=== PATIENT | female | born 1975 | race Caucasian/White ===

== ENCOUNTER 2024-04-04 10:22 | Emergency (ER) | payer OTHER ==
[2024-04-04] MEDS ORDERED: ONDANSETRON 4 MG/2 ML VIAL ONE (11:03)
[2024-04-04] MEDS ORDERED: KETOROLAC 30 MG/ML INJ ONE (11:04)
[2024-04-04] MEDS ORDERED: NA CHLORIDE 0.9% 1,000 ML ONE ×2 (11:04→12:28)
[2024-04-04] MEDS ORDERED: FAMOTIDINE 20 MG/2 ML VIAL IV ONE (11:04)
[2024-04-04] MEDS ORDERED: droPERidol 5 MG/2 ML VIAL ONE (11:13)
[2024-04-04] MEDS ORDERED: DIPHENHYDRAMINE 50 MG/ML VIAL ONE (11:14)
[2024-04-04 11:19] LABS: Absolute Lymphocytes (CBC) 0.7 K/uL (0.7-4.9); Absolute Monocytes 0.2 K/uL (0.1-1.3); Absolute Neutrophil 10.3 K/uL (1.8-8.0); Basophils % 0.2 % (0-1.3); Hematocrit 36.3 % (36.0-45.0); Hemoglobin 11.8 g/dL (12.0-15.0); Lymphocytes % 6.1 % (15.3-44.8); MCH 27.6 pg (27.0-35.0); MCHC 32.5 g/dL (32.0-36.0); MCV 84.8 fL (80-100); MPV 9.5 fL (7.6-11.3); Monocytes % 1.7 % (3.3-12.3); Platelets 364 thou/uL (152-406); RBC Red Blood Cell Count 4.29 M/uL (3.86-4.86); Red Cell Distribution Width 15.6 % (12.1-15.2)
[2024-04-04 11:34] LABS: Albumin 3.8 g/dL (3.4-5.0); Anion Gap 15.4 mEq/L (5.0-15.0); Bilirubin Total 0.7 mg/dL (0.2-1.0); Potassium 3.4 mEq/L (3.5-5.1); Protein, Total 7.8 g/dL (6.4-8.2)
[2024-04-04 12:18] LABS: Specific Gravity 1.016 (1.005-1.030)
[2024-04-04 12:19] LABS: Specific Gravity 1.016 (1.005-1.030); Sqamous Epithelial None Seen /HPF (None Seen); Urine Bacteria <20 /HPF (<20); Urine Bilirubin NEGATIVE (Negative); Urine Blood Negative (Negative); Urine Clarity Clear (Clear); Urine Color Colorless (Yellow); Urine Crystals Unidentified Few /HPF (None Seen); Urine Culture Reflex Order NOT NEEDED; Urine Glucose 3+ (Negative); Urine Ketones 4+ (Over) (Negative); Urine Microscopic Reflex YN ORDER UMIC; Urine Mucus Slight /HPF (None Seen); Urine Nitrite NEGATIVE (Negative); Urine Protein 1+ (Negative); Urine Urobilinogen Normal (Normal); Urine pH 6.5 (5.0-7.0)
--- NOTE | 2024-04-04 13:08 | RAD REPORT ---
EXAMINATION: CT ABDOMEN AND PELVIS WITH CONTRAST CLINICAL INDICATION: Abdominal pain TECHNIQUE: CT abdomen and pelvis was performed, after the administration of 100 cc Isovue-300.. Sagit malia and coronal reconstructions were obtained. One or more of the following dose reduction techniques were used: Automated exposure control, adjustment of the mA and kV according to patient si ze, and iterative reconstruction. Unless otherwise specified, incidental findings do not require dedicated imaging follow-up. [id number]. Oral contrast was not given which limits evaluation of bowel and appendix. COMPARISON: .None FINDINGS: The liver, spleen, pancreas and adrenals unremarkable. Bilateral renal medullary calcifications. 2 calculi within the left renal. The largest centimeters. M inimal hydronephrosis. 5 mm calcification distal left ureter. Small renal cysts Normal appendix. No adnexal mass. No evidence of diverticulitis. Disc space narrowing L5-S1 with osteophytes. Mild posterior subluxation L5 on S1. Postsurgical change s stomach : IMPRESSION: Medullary sponge kidney 2 calculi within the left renal pelvis 5 mm calculus distal left ureter. Minimal left hydronephrosis
[2024-04-04 13:14] LABS: Blood Morphology Comment NOTED (NOT SEEN); Platelet Estimate ADEQ; White Blood Cell Scan OK (OK)
[2024-04-04 13:15] LABS: Ovalocytes 1+
[2024-04-04] MEDS ORDERED: TAMSULOSIN 0.4 MG SR CAP ONE (13:37)
--- NOTE | 2024-04-04 13:37 | EDPHYS ---
Physician Documentation [facility] Name: Leena George Age: 48 yrs Sex: Female : 1975 Arrival Date: 04/04/2024 Time: 10:22 Bed 20 Private MD: ED Physician Pedro Leyva HPI: 04/04 10:32 This 48 yrs old Female presents to ER via Unassigned with complaints of Abdominal Pain, kb Vomiting. 10:32 Pt is a 48 year old female who presents for LUQ pain, nausea and vomiting that started kb at 0300 today. Denies diarrhea, fever. Has not had similar symptoms in the past. Historical: - Allergies: 11:01 No Known Allergies; hb - Immunization history:: Adult Immunizations up to date. - Infectious Disease History:: Denies. - Social history:: Smoking status: Patient denies any tobacco usage or history of. ROS: 10:33 Constitutional: As per HPI kb Exam: 10:33 Head/Face: Normocephalic, atraumatic. ENT: Moist Mucous membranes Cardiovascular: kb Regular rate Respiratory: Respirations even and unlabored. No increased work of breathing. Talking in full sentences Skin: Warm, dry with normal turgor. Normal color. MS/ Extremity: Pulses equal, no cyanosis. Neurovascular intact. Full, normal range of motion. Neuro: Awake and alert, GCS 15, oriented to person, place, time, and situation. 10:33 Constitutional: The patient appears alert, awake, uncomfortable, 10:33 Abdomen/GI: Inspection: abdomen appears normal, Bowel sounds: normal, Palpation: soft, in all quadrants, mild abdominal tenderness, in the left upper quadrant, Vital Signs: 10:59 BP 189 / 83; Pulse 60; Resp 16; Temp 98.2(O); Pulse Ox 100% on R/A; Weight 81.65 kg; hb Height 5 ft. 9 in. ; Pain 8/10; 13:19 BP 154 / 72; Pulse 71; Resp 18; Pulse Ox 100% on R/A; mb9 10:59 Body Mass Index 26.58 (81.65 kg, 175.26 cm) hb 10:59 Pain Scale: Adult hb MDM: 10:26 Medical Screening Exam initiated kb 13:36 Data reviewed: vital signs, nurses notes. kb 13:38 Differential diagnosis: non-specific abd pain, pancreatitis, Peptic Ulcer Disease, kb Ureterolithiasis, urinary tract infection. Historians other than the Patient: Spouse/Significant Other: spouse. Counseling: I had a detailed discussion with the patient and/or guardian regarding the historical points, exam findings, and any diagnostic results supporting the discharge/admit diagnosis, lab results, radiology results, the need for outpatient follow up, a urologist, to return to the emergency department if symptoms worsen or persist or if there are any questions or concerns that arise at home. Response to treatment: the patient's symptoms have markedly improved after treatment. 04/04 10:32 Order name: CBC with Diff; Complete Time: 13:25 kb 04/04 10:32 Order name: CMP; Complete Time: 11:35 kb 04/04 10:32 Order name: Lipase; Complete Time: 11:35 kb 04/04 10:32 Order name: Test, Urine; Complete Time: 12:21 kb 04/04 10:32 Order name: Urinalysis w/ reflexes; Complete Time: 12:21 kb 04/04 13:16 Order name: CBC Smear Scan; Complete Time: 13:25 EDMS 04/04 10:32 Order name: CT Abd/Pelvis - IV Contrast Only; Complete Time: 13:13 kb 04/04 10:32 Order name: IV Saline Lock; Complete Time: 11:12 kb 04/04 10:32 Order name: Labs collected and sent; Complete Time: 11:12 kb Administered Medications: 11:00 Drug: Famotidine IVP 20 mg IVP once; dilute with 10 mL 0.9% NaCl; give over 2 minutes mb9 Route: IVP; Site: left antecubital; 13:18 Follow up: Response: No adverse reaction mb9 11:05 Drug: TORadol - Ketorolac IVP 15 mg IVP once Route: IVP; Site: left antecubital; mb9 11:52 Follow up: Response: No adverse reaction mb9 11:08 Not Given (Duplicate Order): ondansetron 4 mg IVP once; over 2 minutes kb 11:12 Drug: NS 0.9% IV 1000 ml IV at 1 bolus Per protocol; to be given as a bolus over 60 mb9 minutes Route: IV; Rate: 1 bolus; Site: left antecubital; 13:18 Follow up: Response: No adverse reaction; IV Status: Completed infusion mb9 11:18 Drug: diphenhydrAMINE IVP 12.5 mg IVP once Route: IVP; Site: left antecubital; mb9 13:18 Follow up: Response: No adverse reaction mb9 11:20 Drug: Droperidol IVP 1.25 mg IVP once Route: IVP; Site: left antecubital; mb9 13:18 Follow up: Response: No adverse reaction mb9 12:55 Drug: NS 0.9% IV 1000 ml IV at 1000 ml once; to be given as a bolus over 60 minutes mb9 Route: IV; Rate: 1000 ml; Site: left antecubital; 13:46 Follow up: Response: No adverse reaction; IV Status: Completed infusion mb9 13:38 Drug: Hydrocodone-Acetaminophen PO (7.5 mg-325 mg) 1 tabs PO once Route: PO; mb9 13:47 Follow up: Response: No adverse reaction mb9 13:38 Drug: Flomax PO 0.4 mg PO once Route: PO; mb9 13:47 Follow up: Response: No adverse reaction mb9 Disposition Summary: 04/04/24 13:36 Discharge Ordered Notes: Location: Home kb Condition: Stable kb Diagnosis - Calculus of ureter kb - Dehydration kb Followup: kb - With: Emergency Department - When: As needed - Reason: Worsening of condition Followup: kb - With: Private Physician - When: 2 - 3 days - Reason: Recheck today's complaints, Continuance of care, Re-evaluation by your physician Discharge Instructions: - Discharge Summary Sheet kb - Dehydration, Adult kb - Kidney Stones, [id number] kb - Dietary Guidelines to Help Prevent Kidney Stones kb Forms: - Medication Reconciliation Form kb - Antibiotic Education kb - Prescription Opioid Use kb - Patient Portal Instructions kb - Leadership Thank You Letter kb Prescriptions: - Flomax 0.4 mg Oral capsule - take 1 capsule ORAL route daily; 10 capsule; Refills: 0, Product Selection kb Permitted - Zofran 4 mg Oral tablet - take 1 tablet ORAL route every 6 hours As needed; 12 tablet; Refills: 0, kb Product Selection Permitted - Cipro 500 mg Oral Tablet - take 1 tablet ORAL route every 12 hours for 7 days; 14 tablet; Refills: 0, kb Product Selection Permitted - Diclofenac Sodium 75 mg Oral tablet, delayed release (enteric coated) - take 1 tablet ORAL route 2 times per day As needed; 30 tablet; Refills: 0, kb Product Selection Permitted Signatures: Dispatcher [employer] Geno Ibanez, Shayna Burden, RN RN Dana Jones RN RN mb9
--- NOTE | 2024-04-04 13:37 | ER ---
Nurse's Notes [facility] Name: Leena George Age: 48 yrs Sex: Female : 1975 Arrival Date: 04/04/2024 Time: 10:22 Bed 20 Private MD: Diagnosis: Calculus of ureter;Dehydration Presentation: 04/04 10:59 Chief complaint: LUQ pain and N/V since 0300 today. Coronavirus screen: At this time, hb the client does not indicate any symptoms associated with coronavirus-19. Ebola Screen: No symptoms or risks identified at this time. Initial Sepsis Screen: Does the patient meet any 2 criteria? No. Patient's initial sepsis screen is negative. Does the patient have a suspected source of infection? No. Patient's initial sepsis screen is negative. Risk Assessment: Do you want to hurt yourself or someone else? Patient reports no desire to harm self or others. Onset of symptoms was April 04, 2024. 10:59 Method Of Arrival: Ambulatory hb 10:59 Acuity: EMILIA 3 hb Historical: - Allergies: 11:01 No Known Allergies; hb - Immunization history:: Adult Immunizations up to date. - Infectious Disease History:: Denies. - Social history:: Smoking status: Patient denies any tobacco usage or history of. Screenin:23 [facility] ED Fall Risk Assessment (Adult) History of falling in the last 3 months, mb9 including since admission No falls in past 3 months (0 pts) Confusion or Disorientation No (0 pts) Intoxicated or Sedated No (0 pts) Impaired Gait No (0 pts) Mobility Assist Device Used No (0 pt) Altered Elimination No (0 pt) Score/Fall Risk Level 0 - 2 = Low Risk Oriented to surroundings, Maintained a safe environment, Educated pt \T\ family on fall prevention, incl call for assistance when getting out of bed, Assessed \T\ reinforced patient's understanding of fall precautions. Abuse screen: Denies threats or abuse. Nutritional screening: No deficits noted. Tuberculosis screening: No symptoms or risk factors identified. Assessment: 11:22 General: Appears uncomfortable, Behavior is anxious. Pain: Complains of pain in abdomen mb9 Pain radiates to left upper quadrant Pain currently is 10 out of 10 on a pain scale. Quality of pain is described as sharp, shooting, Pain began suddenly, Is continuous. Neuro: Smith Agitation-Sedation Scale (RASS): 0 - Alert and Calm Level of Consciousness is awake, alert, obeys commands, Oriented to person, place, time, situation, Appropriate for age. Cardiovascular: Heart tones S1 S2 present Patient's skin is warm and dry. Respiratory: Airway is patent Respiratory effort is even, unlabored, Respiratory pattern is regular, symmetrical, Breath sounds are clear bilaterally. GI: Abdomen is round non-distended, Bowel sounds present X 4 quads. Abd is soft Abdomen is tender to palpation in left upper quadrant Reports nausea, vomiting. : No signs and/or symptoms were reported regarding the genitourinary system. EENT: No signs and/or symptoms were reported regarding the EENT system. Derm: Skin is intact, Skin is clammy, Skin is pale, Skin temperature is cool. Musculoskeletal: Range of motion: intact in all extremities. 13:19 Reassessment: No changes from previously documented assessment. Patient and/or family mb9 updated on plan of care and expected duration. Pain level reassessed. Patient is alert, oriented x 3, equal unlabored respirations, skin warm/dry/pink. Vital Signs: 10:59 BP 189 / 83; Pulse 60; Resp 16; Temp 98.2(O); Pulse Ox 100% on R/A; Weight 81.65 kg; hb Height 5 ft. 9 in. ; Pain 8/10; 13:19 BP 154 / 72; Pulse 71; Resp 18; Pulse Ox 100% on R/A; mb9 10:59 Body Mass Index 26.58 (81.65 kg, 175.26 cm) hb 10:59 Pain Scale: Adult hb ED Course: 10:26 Patient arrived in ED. al6 10:26 Geno Chowdary FNP-C [facility]. kb 10:26 Pedro Leyva MD is Attending Physician. kb 10:59 Dana Tracy RN is Primary Nurse. mb9 11:01 Triage completed. hb 11:01 Arm band placed on. hb 11:12 Initial lab(s) drawn, by me, sent to lab. Inserted saline lock: 20 gauge in left mb9 antecubital area, using aseptic technique. Blood collected. Flushed with 10 mL NS. 11:23 Placed in gown. Bed in low position. Call light in reach. Side rails up X 1. Provided mb9 Education on: press call light if needing anything. Client placed on continuous cardiac and pulse oximetry monitoring. NIBP monitoring applied. Door closed. Noise minimized. Warm blanket given. Pillow given. 11:55 Radiology exam delayed due to test not completed at this time. mw3 12:38 CT Abd/Pelvis - IV Contrast Only In Process Unspecified. EDMS 13:47 No provider procedures requiring assistance completed. IV discontinued, intact, mb9 bleeding controlled, No redness/swelling at site. Pressure dressing applied. Administered Medications: 11:00 Drug: Famotidine IVP 20 mg IVP once; dilute with 10 mL 0.9% NaCl; give over 2 minutes mb9 Route: IVP; Site: left antecubital; 13:18 Follow up: Response: No adverse reaction mb9 11:05 Drug: TORadol - Ketorolac IVP 15 mg IVP once Route: IVP; Site: left antecubital; mb9 11:52 Follow up: Response: No adverse reaction mb9 11:08 Not Given (Duplicate Order): ondansetron 4 mg IVP once; over 2 minutes kb 11:12 Drug: NS 0.9% IV 1000 ml IV at 1 bolus Per protocol; to be given as a bolus over 60 mb9 minutes Route: IV; Rate: 1 bolus; Site: left antecubital; 13:18 Follow up: Response: No adverse reaction; IV Status: Completed infusion mb9 11:18 Drug: diphenhydrAMINE IVP 12.5 mg IVP once Route: IVP; Site: left antecubital; mb9 13:18 Follow up: Response: No adverse reaction mb9 11:20 Drug: Droperidol IVP 1.25 mg IVP once Route: IVP; Site: left antecubital; mb9 13:18 Follow up: Response: No adverse reaction mb9 12:55 Drug: NS 0.9% IV 1000 ml IV at 1000 ml once; to be given as a bolus over 60 minutes mb9 Route: IV; Rate: 1000 ml; Site: left antecubital; 13:46 Follow up: Response: No adverse reaction; IV Status: Completed infusion mb9 13:38 Drug: Hydrocodone-Acetaminophen PO (7.5 mg-325 mg) 1 tabs PO once Route: PO; mb9 13:47 Follow up: Response: No adverse reaction mb9 13:38 Drug: Flomax PO 0.4 mg PO once Route: PO; mb9 13:47 Follow up: Response: No adverse reaction mb9 Medication: 11:24 VIS not applicable for this client. mb9 Outcome: 13:36 Discharge ordered by MD. parks 13:47 Discharged to home ambulatory, with family, mb9 13:47 Condition: stable 13:47 Discharge instructions given to patient, Instructed on discharge instructions, follow up and referral plans. Demonstrated understanding of instructions, follow-up care, medications, Prescriptions given X 4, 13:47 Patient left the ED. mb9 Signatures: Dispatcher [employer] EDMS Geno Chowdary, HUMAN RESOURCES BENEFITS COORDINATOR-C HUMAN RESOURCES BENEFITS COORDINATOR-Shayna Covarrubias RN RN Suly Buckley 3 Dana Tracy RN RN mb9 Sera [place]6 Corrections: (The following items were deleted from the chart) 11:01 10:59 Chief complaint: hb hb
[2024-04-04] MEDS ORDERED: HYDROCODONE/APAP 7.5/325 MG TAB ONE (13:38)
[2024-04-04 13:53] VITALS: BP 154/72; O2SAT 100
[2024-04-04 13:55] VITALS: TEMP 98.2
== END 2024-04-04 13:47 | disposition home or self-care (01) ==
LOC: ER 10:22
DX: N20.1 Calculus of ureter (principal); E86.0 Dehydration
CPT/HCPCS: 85025; 81001; 36415; 81025; 83690; 80053; 74177; Q9967; J1200; J1790; J7030 ×2; 96361; 96374; 96375; 99284; J2405

== ENCOUNTER 2024-05-10 06:06 | Emergency (ER) | payer OTHER ==
[2024-05-10] MEDS ORDERED: KETOROLAC 30 MG/ML INJ ONE (06:32)
[2024-05-10] MEDS ORDERED: METOCLOPRAMIDE 10 MG/2mL INJ ONE (06:33)
[2024-05-10] MEDS ORDERED: MORPHINE 4 MG/ML SYR ONE ×2 (06:33→09:24)
[2024-05-10] MEDS ORDERED: NA CHLORIDE 0.9% 1,000 ML ONE (06:33)
[2024-05-10] MEDS ORDERED: FAMOTIDINE 20 MG/2 ML VIAL IV ONE (06:33)
[2024-05-10 06:36] LABS: Absolute Monocytes 1.1 K/uL (0.1-1.3); Absolute Neutrophil 18.2 K/uL (1.8-8.0); Basophils % 0.2 % (0-1.3); Hematocrit 38.6 % (36.0-45.0); Hemoglobin 12.7 g/dL (12.0-15.0); Lymphocytes % 4.7 % (15.3-44.8); MCHC 32.9 g/dL (32.0-36.0); MPV 9.2 fL (7.6-11.3); Monocytes % 5.2 % (3.3-12.3); Neutrophils % 89.9 % (41.7-73.7); Platelets 416 thou/uL (152-406); RBC Red Blood Cell Count 4.54 M/uL (3.86-4.86); Red Cell Distribution Width 16.2 % (12.1-15.2)
[2024-05-10 06:50] LABS: Albumin 3.7 g/dL (3.4-5.0); Albumin/Globulin Ratio 0.9 (1.1-1.8); Anion Gap 15.8 mEq/L (5.0-15.0); Bilirubin Total 0.9 mg/dL (0.2-1.0); Globulin 4.1 g/dL (2.3-3.5); Potassium 3.8 mEq/L (3.5-5.1); Protein, Total 7.8 g/dL (6.4-8.2)
--- NOTE | 2024-05-10 07:34 | RAD REPORT ---
EXAMINATION: CT ABDOMEN AND PELVIS WITHOUT CONTRAST CLINICAL INDICATION: Abdominal pain TECHNIQUE: CT abdomen and pelvis was performed, as per department protocol. IV contrast and oral was not administered.Axial, sagittal and coronal reconstructions were obtained. One or more of the following dose reduction techniques were used: Automated exposure control, adjustment of the mA and/o r kV according to the patient size, and/or iterative reconstruction. Unless otherwise specified, incidental findings do not require dedicated imaging follow-up. [id number]. COMPARISON: March 2024. FINDINGS: The lack of intravenous and oral contrast limits evaluation of solid organs, vessels and bowel. Medullary sponge kidney with calcifications. 1 cm calculus left UPJ moderate left hydronephrosis. Liver, spleen, pancreas and adrenals grossly normal. Post surgical changes involve the stomach. No adnexal mass. Spondylosis L5-S1 with mild posterior subluxation. No evidence of diverticulitis IMPRESSION: 1 cm calculus left UPJ with moderate left hydronephrosis
[2024-05-10 08:48] LABS: White Blood Cell Scan OK (OK)
[2024-05-10 08:49] LABS: Blood Morphology Comment NOTED (NOT SEEN); Ovalocytes 1+; Platelet Estimate INCR
[2024-05-10 09:16] LABS: Specific Gravity 1.014 (1.005-1.030)
[2024-05-10 09:22] LABS: Specific Gravity 1.014 (1.005-1.030); Sqamous Epithelial <5 /HPF (None Seen); Urine Bacteria <20 /HPF (<20); Urine Bilirubin NEGATIVE (Negative); Urine Blood 1+ (Negative); Urine Clarity Clear (Clear); Urine Color Colorless (Yellow); Urine Culture Reflex Order REFLEXED; Urine Glucose NEGATIVE (Negative); Urine Ketones 2+ (Negative); Urine Microscopic Reflex YN ORDER UMIC; Urine Mucus Slight /HPF (None Seen); Urine Nitrite NEGATIVE (Negative); Urine Protein TRACE (Negative); Urine RBC 21-50 /HPF (None Seen); Urine Urobilinogen Normal (Normal)
--- NOTE | 2024-05-10 09:35 | ER ---
Nurse's Notes [facility] Name: Leena George Age: 49 yrs Sex: Female : 1975 Arrival Date: 05/10/2024 Time: 06:06 Bed 6 Private MD: Diagnosis: 1cm Ureteral Pelvic Junction Stone;UTI Presentation: 05/10 06:24 Chief complaint: Patient states: lower abdominal pain with vomiting. Coronavirus vc1 screen: Client denies travel out of the [place] in the last 14 days. At this time, the client does not indicate any symptoms associated with coronavirus-19. Ebola Screen: Patient negative for fever greater than or equal to 101.5 degrees Fahrenheit, and additional compatible Ebola Virus Disease symptoms Patient denies exposure to infectious person. Patient denies travel to an Ebola-affected area in the 21 days before illness onset. No symptoms or risks identified at this time. Initial Sepsis Screen: Does the patient meet any 2 criteria? No. Patient's initial sepsis screen is negative. Does the patient have a suspected source of infection? No. Patient's initial sepsis screen is negative. Risk Assessment: Do you want to hurt yourself or someone else? Patient reports no desire to harm self or others. Onset of symptoms was May 10, 2024. 06:24 Method Of Arrival: Wheelchair vc1 06:24 Acuity: EMILIA 3 vc1 Triage Assessment: 06:27 General: Appears distressed, uncomfortable, Behavior is crying, restless. Pain: vc1 Complains of pain in anterior aspect of right lateral abdomen and right lower quadrant Pain does not radiate. Pain currently is 10 out of 10 on a pain scale. EENT: No deficits noted. No signs and/or symptoms were reported regarding the EENT system. Neuro: Level of Consciousness is awake, alert, obeys commands, Oriented to person, place, time, situation, Appropriate for age. Cardiovascular: Capillary refill < 3 seconds Patient's skin is warm and dry. GI: Abdomen is flat, non-distended, Reports lower abdominal pain, nausea. : Reports pain in left flank(s), Pain is 10 out of 10 on a pain scale. Historical: - Allergies: 06:26 No Known Allergies; vc1 - PMHx: 06:26 Depression; vc1 - PSHx: 06:26 None; vc1 - Immunization history:: Adult Immunizations up to date, Client reports receiving the 2nd dose of the Covid vaccine, Flu vaccine is not up to date. - Infectious Disease History:: Denies. - Social history:: Smoking status: Patient denies any tobacco usage or history of. - Family history:: not pertinent. Screenin:27 Abuse screen: Denies threats or abuse. Nutritional screening: No deficits noted. vc1 Tuberculosis screening: No symptoms or risk factors identified. 07:07 [facility] ED Fall Risk Assessment (Adult) History of falling in the last 3 months, ha1 including since admission No falls in past 3 months (0 pts) Confusion or Disorientation No (0 pts) Intoxicated or Sedated No (0 pts) Impaired Gait No (0 pts) Mobility Assist Device Used No (0 pt) Altered Elimination No (0 pt) Score/Fall Risk Level 0 - 2 = Low Risk Oriented to surroundings, Maintained a safe environment, Educated pt \T\ family on fall prevention, incl call for assistance when getting out of bed, Hourly rounding (assess needs \T\ fall precautionary measures) done. Assessment: 06:20 General: Appears uncomfortable, Behavior is anxious, crying, restless. Pain: Complains ha1 of pain in back Pain radiates to pelvis Pain currently is 10 out of 10 on a pain scale. Neuro: Level of Consciousness is awake, alert, obeys commands, Oriented to person, place, time, situation. Cardiovascular: Capillary refill < 3 seconds Patient's skin is warm and dry. Respiratory: Airway is patent Respiratory effort is even, unlabored, Respiratory pattern is regular, symmetrical. GI: Abdomen is round non-distended, Bowel sounds present X 4 quads. Abd is soft X 4 quads Reports nausea, vomiting. Derm: Skin is pink, warm \T\ dry. Musculoskeletal: Circulation, motion, and sensation intact. Range of motion: intact in all extremities. 08:00 Reassessment: Pt sleeping . aa5 09:00 Reassessment: Patient is alert, oriented x 3, equal unlabored respirations, skin aa5 warm/dry/pink. Patient states feeling better. Pt ambulatory to restroom, steady gait noted, offered wheelchair, pt declined. . 09:20 Reassessment: Patient is alert, oriented x 3, equal unlabored respirations, skin aa5 warm/dry/pink. Pt requesting pain medication, was notified. . 11:29 Reassessment: REPORT TO GENNA FINE AT [facility] FOR RM 528. bp Vital Signs: 06:24 BP 120 / 84; Pulse 66; Resp 18; Temp 97.7; Pulse Ox 97% ; Weight 72.57 kg; Height 5 ft. vc1 8 in. ; Pain 10/10; 09:20 BP 121 / 71; Pulse 45; Resp 16 S; Pulse Ox 98% on R/A; Pain 5/10; aa5 09:34 BP 117 / 68; Pulse 47; Resp 14 S; Pulse Ox 99% on R/A; aa5 06:24 Body Mass Index 24.33 (72.57 kg, 172.72 cm) vc1 06:24 Pain Scale: Adult vc1 09:20 Pain Scale: Adult aa5 [place] Coma Score: 06:31 Eye Response: spontaneous(4). Motor Response: obeys commands(6). Verbal Response: sp4 oriented(5). Total: 15. ED Course: 06:06 Patient arrived in ED. jj6 06:16 Patient has correct armband on for positive identification. Placed in gown. Bed in low ha1 position. Call light in reach. Side rails up X 1. Adult w/ patient. 06:21 Satish Orozco MD is Attending Physician. sp4 06:26 Triage completed. vc1 06:26 Arm band placed on right wrist. vc1 06:27 Inserted saline lock: 22 gauge in right antecubital area, using aseptic technique. mm11 Blood collected. Flushed with 10 mL NS. 06:28 CBC with Diff Sent. mm11 06:28 CMP Sent. mm11 06:28 Lipase Sent. mm11 06:52 CT Abd/Pelvis - Without Contrast In Process Unspecified. EDMS 07:07 Attending Physician role handed off by Satish Orozco MD ec2 07:07 Pedro Leyva MD is Attending Physician. ec2 07:24 Golden Mayo, RODY is Primary Nurse. bp 10:05 initiated transfer to [facility] or [facility]. bd 10:30 First set of blood cultures drawn Second set of blood cultures drawn by nc. kb4 10:33 Blood Culture Adult (2) Sent. kb4 10:33 Inserted saline lock: 20 gauge in left antecubital area, using aseptic technique. Blood kb4 collected. Flushed with 10 mL NS. 11:15 pt accepted in transfer to [facility] by dr Saldana [id number] approval given by kelley Somers. 11:21 Provided Education on: NA. bp 11:21 No provider procedures requiring assistance completed. Patient transferred, IV remains bp in place. Administered Medications: 06:43 Drug: metoCLOPramide IVP 10 mg IVP once; over 1 to 2 minutes Route: IVP; Site: right ha1 antecubital; 07:10 Follow up: Response: No adverse reaction aa5 06:44 Drug: morphine IVP or IV 8 mg IVP once over 4 mins Route: IVP; Infused Over: 4 mins; ha1 Site: right antecubital; 07:10 Follow up: Response: No adverse reaction aa5 06:44 Drug: Famotidine IVP 20 mg IVP once; dilute with 10 mL 0.9% NaCl; give over 2 minutes ha1 Route: IVP; Site: right antecubital; 07:10 Follow up: Response: No adverse reaction aa5 06:44 Drug: TORadol - Ketorolac IVP 15 mg IVP once Route: IVP; Site: right antecubital; ha1 07:10 Follow up: Response: No adverse reaction aa5 06:44 Drug: Ondansetron IVP 4 mg IVP once; over 2 minutes Route: IVP; Site: right antecubital;ha1 07:10 Follow up: Response: No adverse reaction aa5 06:44 Drug: NS 0.9% IV 1000 ml IV at 1 bolus Per protocol; to be given as a bolus over 60 ha1 minutes Route: IV; Rate: 1 bolus; Site: right antecubital; 09:55 Follow up: IV Status: Completed infusion; IV Intake: 1000ml aa5 09:29 Drug: morphine IVP or IV 4 mg IVP once over 4 mins Route: IVP; Infused Over: 4 mins; aa5 Site: right antecubital; 09:32 Follow up: Response: No adverse reaction aa5 10:43 Drug: Rocephin IV 1 grams IV at bolus once; Given slow IV push per pharmacy cm10 instructions Route: IV; Rate: bolus; Site: left antecubital; 11:20 Follow up: IV Status: Completed infusion bp Medication: 11:21 VIS not applicable for this client. bp Intake: 09:55 IV: 1000ml; Total: 1000ml. aa5 Outcome: 09:35 ER care complete, transfer ordered by . ec2 11:20 Transferred by ground EMS to [facility], Transfer form completed. bp 11:20 Condition: stable 11:20 Instructed on the need for transfer, 12:59 Patient left the ED. bp Signatures: Dispatcher [employer] EDMS Marjorie Bennett Audri, RN RN aa5 Golden Mayo RN RN bp Brenda Adamsj6 Theresa Grant RN RN vc1 Tiara Sexton RN RN ha1 Satish Orozco MD MD sp4 Ifrah Chao RN RN cm10 Pedro Leyva MD MD ec2 Trinh Merrill kb4 vilma cabrera mm11
--- NOTE | 2024-05-10 09:35 | EDPHYS ---
Physician Documentation [facility] Name: Leena George Age: 49 yrs Sex: Female : 1975 Arrival Date: 05/10/2024 Time: 06:06 Bed 6 Private MD: ED Physician Pedro Leyva HPI: 05/10 06:24 This 49 yrs old Female presents to ER via Unassigned with complaints of sp4 Possible Kidney Stone. 06:24 49-year-old female presents with moderate to severe moderate left flank pain, history sp4 of 5 mm kidney stone. 06:30 Patient reports intractable vomiting. On 04/04/2024 patient was diagnosed with 2 sp4 calculi in the left renal pelvis and 5 mm calculus in the distal left ureter with minimal left hydronephrosis. Patient states that her pain has intensified since last Friday and this morning it is intolerable.. Historical: - Allergies: 06:26 No Known Allergies; vc1 - PMHx: 06:26 Depression; vc1 - PSHx: 06:26 None; vc1 - Immunization history:: Adult Immunizations up to date, Client reports receiving the 2nd dose of the Covid vaccine, Flu vaccine is not up to date. - Infectious Disease History:: Denies. - Social history:: Smoking status: Patient denies any tobacco usage or history of. - Family history:: not pertinent. ROS: 06:31 Constitutional: Negative for fever, chills, and weight loss, positive moderate to sp4 severe left flank pain positive vomiting. 06:31 All other systems are negative, Exam: 06:31 Constitutional: This is a well developed, well nourished patient who is awake, alert, sp4 moderate to severe distress secondary to pain Head/Face: Normocephalic, atraumatic. Eyes: Pupils equal round and reactive to light, extra-ocular motions intact. Lids and lashes normal. Conjunctiva and sclera are not injected. Cornea within normal limits. Periorbital areas with no swelling, redness, or edema. ENT: Nares patent. No nasal discharge, no septal abnormalities noted. Tympanic membranes are normal and external auditory canals are clear. Oropharynx with no redness, swelling, or masses, exudates, or evidence of obstruction, uvula midline. Mucous membranes moist. Neck: Trachea midline, no thyromegaly or masses palpated, and no cervical lymphadenopathy. Supple, full range of motion without nuchal rigidity, or vertebral point tenderness. Chest/axilla: Normal chest wall appearance and motion. Nontender with no deformity. No lesions are appreciated. Cardiovascular: Regular rate and rhythm with a normal S1 and S2. No gallops, murmurs, or rubs. Normal PMI, no JVD. No pulse deficits. Respiratory: Lungs have equal breath sounds bilaterally, clear to auscultation and percussion. No rales, rhonchi or wheezes noted. No increased work of breathing, no retractions or nasal flaring. Abdomen/GI: Soft, with normal bowel sounds. No distension or tympany. No guarding or rebound. No evidence of tenderness throughout. Back: No spinal tenderness. No costovertebral tenderness. Skin: Warm, dry with normal turgor. Normal color with no rashes, no lesions, and no evidence of cellulitis. MS/ Extremity: Pulses equal, no cyanosis. Neurovascular intact. Full, normal range of motion. Neuro: Awake and alert, GCS 15, oriented to person, place, time, and situation. Cranial nerves II-XII grossly intact. Motor strength 5/5 in all extremities. Sensory grossly intact. Psych: Awake, alert, with orientation to person, place and time. Behavior, mood, and affect are within normal limits Vital Signs: 06:24 BP 120 / 84; Pulse 66; Resp 18; Temp 97.7; Pulse Ox 97% ; Weight 72.57 kg; Height 5 ft. vc1 8 in. ; Pain 10/10; 09:20 BP 121 / 71; Pulse 45; Resp 16 S; Pulse Ox 98% on R/A; Pain 5/10; aa5 09:34 BP 117 / 68; Pulse 47; Resp 14 S; Pulse Ox 99% on R/A; aa5 06:24 Body Mass Index 24.33 (72.57 kg, 172.72 cm) vc1 06:24 Pain Scale: Adult vc1 09:20 Pain Scale: Adult aa5 Benjamin Coma Score: 06:31 Eye Response: spontaneous(4). Motor Response: obeys commands(6). Verbal Response: sp4 oriented(5). Total: 15. MDM: 06:22 Medical Screening Exam initiated sp4 06:33 Differential diagnosis: cholecystitis, gastritis, Hepatitis, pancreatitis. Data sp4 reviewed: vital signs, nurses notes, lab test result(s), radiologic studies, CT scan. Consideration of Admission/Observation Escalation of care including admission/observation considered. 06:55 Transition of care: After a detail discussion of the patient's case, care is sp4 transferred to Pedro Leyva MD. 07:09 ED course: Patient s/o to me by previous physician, patient with previous history of ec2 kidney stone arrives today for worsening left-sided flank pain. Plans to follow-up CT imaging. Lab work shows leukocytosis.. 09:34 ED course: UA with ketones present, blood as well as leuk esterase and WBCs, will ec2 empirically treat with ceftriaxone, will transfer over for UPJ calculus, possible concurrent urinary tract infection. Will transfer for urology capable facility.. 10:36 ED course: I discussed the case with the hospitalist at [facility] who agrees ec2 accept patient for transfer.. 05/10 06:21 Order name: CBC with Diff; Complete Time: 09:22 sp4 05/10 06:21 Order name: CMP; Complete Time: 07:08 sp4 05/10 06:21 Order name: Lipase; Complete Time: 07:08 sp4 05/10 06:21 Order name: Test, Urine; Complete Time: 09:22 sp4 05/10 06:21 Order name: Urinalysis w/ reflexes; Complete Time: 09:32 sp4 05/10 08:49 Order name: CBC Smear Scan; Complete Time: 09:22 EDMS 05/10 09:26 Order name: Urine Culture EDMS 05/10 09:33 Order name: Blood Culture Adult (2) ec2 05/10 06:21 Order name: CT Abd/Pelvis - Without Contrast; Complete Time: 07:37 sp4 05/10 06:21 Order name: IV Saline Lock; Complete Time: 06:28 sp4 05/10 06:21 Order name: Labs collected and sent; Complete Time: 06:28 sp4 Administered Medications: 06:43 Drug: metoCLOPramide IVP 10 mg IVP once; over 1 to 2 minutes Route: IVP; Site: right ha1 antecubital; 07:10 Follow up: Response: No adverse reaction aa5 06:44 Drug: morphine IVP or IV 8 mg IVP once over 4 mins Route: IVP; Infused Over: 4 mins; ha1 Site: right antecubital; 07:10 Follow up: Response: No adverse reaction aa5 06:44 Drug: Famotidine IVP 20 mg IVP once; dilute with 10 mL 0.9% NaCl; give over 2 minutes ha1 Route: IVP; Site: right antecubital; 07:10 Follow up: Response: No adverse reaction aa5 06:44 Drug: TORadol - Ketorolac IVP 15 mg IVP once Route: IVP; Site: right antecubital; ha1 07:10 Follow up: Response: No adverse reaction aa5 06:44 Drug: Ondansetron IVP 4 mg IVP once; over 2 minutes Route: IVP; Site: right antecubital;ha1 07:10 Follow up: Response: No adverse reaction aa5 06:44 Drug: NS 0.9% IV 1000 ml IV at 1 bolus Per protocol; to be given as a bolus over 60 ha1 minutes Route: IV; Rate: 1 bolus; Site: right antecubital; 09:55 Follow up: IV Status: Completed infusion; IV Intake: 1000ml aa5 09:29 Drug: morphine IVP or IV 4 mg IVP once over 4 mins Route: IVP; Infused Over: 4 mins; aa5 Site: right antecubital; 09:32 Follow up: Response: No adverse reaction aa5 10:43 Drug: Rocephin IV 1 grams IV at bolus once; Given slow IV push per pharmacy cm10 instructions Route: IV; Rate: bolus; Site: left antecubital; 11:20 Follow up: IV Status: Completed infusion bp Disposition Summary: 05/10/24 09:35 Transfer Ordered Notes: Transfer Location: Other Acute Care Facility ec2 Reason: Higher level of care ec2 Condition: Stable ec2 Problem: an ongoing problem ec2 Symptoms: have improved ec2 Accepting Physician: transferring doc(05/10/24 12:59) bp Diagnosis - 1cm Ureteral Pelvic Junction Stone ec2 - UTI ec2 Forms: - Medication Reconciliation Form ec2 - SBAR form ec2 Signatures: Dispatcher [employer] EDDaniela Delgado RN RN aa5 Golden Mayo RN RN bp Theresa Grant RN RN vc1 Tiara Sexton RN RN ha1 Satish Orozco MD MD sp4 Ifrah Chao RN RN cm10 Pedro Leyva MD MD ec2 Corrections: (The following items were deleted from the chart) : 08:25 Jimenes ordered. ec2 ec2 12:59 09:35 transferring doc ec2 bp
[2024-05-10] MEDS ORDERED: CEFTRIAXONE 1000 MG/VIAL ONE (10:17)
[2024-05-10 13:04] VITALS: TEMP 97.7
[2024-05-10 13:06] VITALS: BP 117/68; O2SAT 99
== END 2024-05-10 12:59 ==
LOC: ER 06:06
DX: N20.1 Calculus of ureter (principal); N39.0 Urinary tract infection, site not specified; Z87.442 Personal history of urinary calculi
CPT/HCPCS: 96365; 96361; 87040 ×2; 87088; 85025; 81001; 87086; 36415; 81025; 83690; 80053; 74176; 96375; 99285; J2765; J7030; J0696

== ENCOUNTER 2024-12-17 07:38 | Emergency (ER) | payer OTHER ==
[2024-12-17] MEDS ORDERED: LORazepam 2 MG/ML VIAL ONE (07:49)
[2024-12-17 08:20] LABS: Absolute Lymphocytes (CBC) 0.7 K/uL (0.7-4.9); Hematocrit 37.5 % (36.0-45.0); Hemoglobin 12.2 g/dL (12.0-15.0); MCH 26.5 pg (27.0-35.0); MCHC 32.5 g/dL (32.0-36.0); MCV 81.6 fL (80-100); MPV 10.0 fL (7.6-11.3); Nucleated RBC Absolute Count 0.0 (0-0); Nucleated Red Blood Cells % 0.1 % (0-0); RBC Red Blood Cell Count 4.59 M/uL (3.86-4.86); White Blood Count 9.90 thou/uL (4.3-10.9)
[2024-12-17 08:34] LABS: Anion Gap 16.8 mEq/L (5.0-15.0); BUN Blood Urea Nitrogen 29.0 mg/dL (7-18); Glucose Level 193.0 mg/dL (74-106); NT PRO-BNP 11953.0 pg/mL (<125)
[2024-12-17 08:37] LABS: Potassium 3.8 mEq/L (3.5-5.1)
[2024-12-17 08:38] LABS: Troponin High Sensitivity 2045.9 pg/mL (<58.9)
--- NOTE | 2024-12-17 08:38 | RAD REPORT ---
EXAM: Chest Single View HISTORY: 49 years Female DYSPNEA COMPARISON: 12/14/24 FINDINGS: LUNGS/PLEURA: The lungs are clear. No pleural effusions or pneumothorax. No pulmonary edema. CARDIAC/MEDIASTINUM: The cardiac silhouette is within normal limits. UPPER ABDOMEN: No significant abnormality. BONES: No acute abnormality. LINES/TUBES/OTHER: N/A IMPRESSION: No evidence of acute cardiopulmonary disease.
[2024-12-17 10:04] LABS: White Blood Cell Scan OK (OK)
[2024-12-17 10:05] LABS: Anisocytosis SLIGHT; Blood Morphology Comment NOTED (NOT SEEN); Ovalocytes SLIGHT; Poikilocytosis SLIGHT
--- NOTE | 2024-12-17 11:20 | EDPHYS ---
Physician Documentation [facility] Name: Leena George Age: 49 yrs Sex: Female : 1975 Arrival Date: 12/17/2024 Time: 07:15 Bed 4 Private MD: ED Physician Rogers Raphael HPI: 12/17 07:45 This 49 yrs old Female presents to ER via Unassigned with complaints of dyspnea. rn 07:45 Patient reports discharged yesterday from hospital, admitted for possible NSTEMI, final rn diagnosis was stress-induced cardiomyopathy or Takotsubo cardiomyopathy. Troponin had trended into the thousands. Patient reports discharge yesterday and was feeling a little bit better but woke up this morning and used the bathroom, reports worsening dyspnea and tachycardia.. 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 - Infectious Disease History:: Denies. - Family history:: not pertinent. - Social history:: Smoking status: unknown. - Hospitalizations: : No recent hospitalization is reported. ROS: 07:45 Constitutional: Negative for fever, chills, and weight loss, Cardiovascular: Negative rn for edema Respiratory: Negative for cough, wheezing, and pleuritic chest pain, Abdomen/GI: Negative for abdominal pain, diarrhea, and constipation, MS/Extremity: Negative for injury and deformity, Skin: Negative for injury, rash, and discoloration, Neuro: Negative for headache, weakness, numbness, tingling, and seizure, Exam: 07:45 Constitutional: This is a well developed, well nourished patient who is awake, alert, rn appears anxious, hyperventilating Cardiovascular: Tachycardic, regular Respiratory: Mild hyperventilation Abdomen/GI: Soft, non-tender MS/ Extremity: Pulses equal, no cyanosis. Neurovascular intact. Full, normal range of motion. Equal circumference. Neuro: Awake and alert, GCS 15 09:11 ECG was reviewed by the Attending Physician. rn Vital Signs: 07:59 BP 146 / 90; Pulse 102; Resp 20; Temp 98.6; Pulse Ox 100% on R/A; kb4 08:30 BP 136 / 101; Pulse 112; Resp 18; Pulse Ox 95% on R/A; kb4 09:25 BP 149 / 107; Pulse 119; Resp 18; Temp 98.9(O); Pulse Ox 98% on R/A; kb4 10:21 BP 149 / 101; Pulse 101; Resp 18; Pulse Ox 98% on R/A; kb4 11:08 BP 140 / 93; Pulse 100; rn 11:25 BP 121 / 86; Pulse 109; Resp 18; Pulse Ox 99% on R/A; kb4 MDM: 07:38 Medical Screening Exam initiated rn 11:17 Differential diagnosis: Anemia Anxiety Reaction Bronchitis CHF exacerbation, Myocardial rn Infarction Pneumothorax pulmonary edema. Data reviewed: vital signs, nurses notes, lab test result(s), EKG, radiologic studies, plain films, and as a result, I will discharge patient. 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 Nelson, bark grinder for patient during most recent hospitalization. He states okay to discharge and she needs to start her medication. Given her prescribed medication today with improvement of vital signs and symptoms. Chest x-ray images negative for pulmonary edema or pneumonia per my interpretation. Will discharge home with cardiology follow-up.. Counseling: I had a detailed discussion with the patient and/or guardian regarding the historical points, exam findings, and any diagnostic results supporting the discharge/admit diagnosis, lab results, radiology results, the need for outpatient follow up, to return to the emergency department if symptoms worsen or persist or if there are any questions or concerns that arise at home. Response to treatment: the patient's symptoms have markedly improved after treatment, and as a result, I will discharge patient. Special discussion: I discussed with the patient/guardian in detail that at this point there is no indication for admission to the hospital. It is understood, however, that if the symptoms persist or worsen the patient needs to return immediately for re-evaluation. 12/17 07:43 Order name: Basic Metabolic Panel; Complete Time: 08:58 rn 12/17 07:43 Order name: CBC with Diff; Complete Time: 10:06 rn 12/17 07:43 Order name: NT PRO-BNP; Complete Time: 08:58 rn 12/17 07:43 Order name: Troponin HS; Complete Time: 08:58 rn 12/17 08:28 Order name: CBC Smear Scan; Complete Time: 10:06 EDKS 12/17 07:43 Order name: XRAY Chest (1 view); Complete Time: 08:58 rn 12/17 07:43 Order name: Cardiac monitoring; Complete Time: 07:56 rn 12/17 07:43 Order name: EKG - Nurse/Tech; Complete Time: 07:56 rn 12/17 07:43 Order name: IV Saline Lock; Complete Time: 07:56 rn 12/17 07:43 Order name: Labs collected and sent; Complete Time: 07:56 rn 12/17 07:43 Order name: O2 Per Protocol; Complete Time: 07:56 rn 12/17 07:43 Order name: O2 Sat Monitoring; Complete Time: 07:56 rn EC:11 Rate is 102 beats/min. Rhythm is regular. QRS [place] is Normal. NC interval is normal. rn QRS interval is normal. QT interval is normal. No Q waves. T waves are Normal. No ST changes noted. Clinical impression: Sinus tachycardia. Interpreted by me. Reviewed by me. Administered Medications: 07:56 Drug: Ativan IVP 1 mg IVP once Route: IVP; Site: right antecubital; kb4 08:13 Follow up: Response: No adverse reaction kb4 09:17 Drug: Coreg PO 3.125 mg PO once; administer with food Route: PO; kb4 10:28 Follow up: Response: No adverse reaction kb4 09:17 Drug: Lisinopril PO 5 mg PO once Route: PO; kb4 10:28 Follow up: Response: No adverse reaction kb4 Disposition Summary: 12/17/24 11:20 Discharge Ordered Notes: Location: Home rn Problem: new rn Symptoms: have improved rn Condition: Stable rn Diagnosis - Dyspnea, unspecified rn Followup: rn - With: Private Physician - When: As needed - Reason: Recheck today's complaints, Re-evaluation by your physician Discharge Instructions: - Discharge Summary Sheet rn - Hyperventilation rn - Shortness of Breath, Adult rn Forms: - Medication Reconciliation Form rn - Antibiotic morning caregiver - Prescription Opioid Use rn - Patient Portal Instructions rn - Leadership Thank You Letter rn Signatures: Dispatcher [facility] Rogers Raphael MD MD rn Bowen, Kayla, RN RN kb4 Corrections: (The following items were deleted from the chart) 07:43 07:43 BASIC METABOLIC PANEL+C.LAB.BRZ ordered. EDMS EDMS 07:43 07:43 CBC+H.LAB.BRZ ordered. EDMS EDMS 07:43 07:43 PROBNP+C.LAB.BRZ ordered. EDMS EDMS 07:43 07:43 Troponin High Sensitivity+C.LAB.BRZ ordered. EDMS EDMS 07:43 07:43 Chest Single View+RAD.RAD.BRZ ordered. EDMS EDMS
--- NOTE | 2024-12-17 11:20 | ER ---
Nurse's Notes [facility] Name: Leena George Age: 49 yrs Sex: Female : 1975 Arrival Date: 12/17/2024 Time: 07:15 Bed 4 Private MD: Diagnosis: Dyspnea, unspecified Presentation: 12/17 07:59 Chief complaint: Patient states: c/o chest pain and anxiety. Coronavirus screen: At 4 this time, unable to obtain information related to travel outside the [place] Ebola Screen: No symptoms or risks identified at this time. Initial Sepsis Screen: Does the patient meet any 2 criteria? No. Patient's initial sepsis screen is negative. Does the patient have a suspected source of infection? No. Patient's initial sepsis screen is negative. Risk Assessment: Do you want to hurt yourself or someone else? Patient reports no desire to harm self or others. Onset of symptoms was December 17, 2024. 07:59 Method Of Arrival: EMS: [place] [id number] 07:59 Acuity: EMILIA 3 kb4 Triage Assessment: 08:00 General: Appears distressed, uncomfortable, Behavior is cooperative, anxious. Pain: kb4 Complains of pain in abdomen, left upper Pain currently is 7 out of 10 on a pain scale. 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 - Infectious Disease History:: Denies. - Family history:: not pertinent. - Social history:: Smoking status: unknown. - Hospitalizations: : No recent hospitalization is reported. Screenin:03 [facility] ED Fall Risk Assessment (Adult) History of falling in the last 3 months, kb4 including since admission No falls in past 3 months (0 pts) Confusion or Disorientation No (0 pts) Intoxicated or Sedated No (0 pts) Impaired Gait No (0 pts) Mobility Assist Device Used No (0 pt) Altered Elimination No (0 pt) Score/Fall Risk Level 0 - 2 = Low Risk. Abuse screen: Denies threats or abuse. Denies injuries from another. Nutritional screening: No deficits noted. Tuberculosis screening: No symptoms or risk factors identified. Assessment: 08:02 General: Appears distressed, uncomfortable, Behavior is cooperative, anxious. Pain:. kb4 Neuro: Level of Consciousness is awake, alert, obeys commands, Oriented to person, place, time, situation. Cardiovascular: Patient's skin is warm and dry. Rhythm is sinus tachycardia. Respiratory: Airway is patent Respiratory effort is even, unlabored, Respiratory pattern is regular, symmetrical. GI: Abdomen is flat, non-distended. Derm: Skin is pink, warm \T\ dry. 08:13 Reassessment: pt is calm now. kb4 09:20 Reassessment: pt resting in bed, sweating, temp 98.9, pt states she is post menopausal kb4 and this happens regularly. General: Appears in no apparent distress. comfortable, Behavior is calm, cooperative. Derm: Skin is clammy, diaphoretic. 10:19 Reassessment: Patient and/or family updated on plan of care and expected duration. Pain kb4 level reassessed. Patient is alert, oriented x 3, equal unlabored respirations, skin warm/dry/pink. pt utilized w/c to go to RR. 11:29 Reassessment: Patient and/or family updated on plan of care and expected duration. Pain kb4 level reassessed. Patient is alert, oriented x 3, equal unlabored respirations, skin warm/dry/pink. Vital Signs: 07:59 BP 146 / 90; Pulse 102; Resp 20; Temp 98.6; Pulse Ox 100% on R/A; kb4 08:30 BP 136 / 101; Pulse 112; Resp 18; Pulse Ox 95% on R/A; kb4 09:25 BP 149 / 107; Pulse 119; Resp 18; Temp 98.9(O); Pulse Ox 98% on R/A; kb4 10:21 BP 149 / 101; Pulse 101; Resp 18; Pulse Ox 98% on R/A; kb4 11:08 BP 140 / 93; Pulse 100; rn 11:25 BP 121 / 86; Pulse 109; Resp 18; Pulse Ox 99% on R/A; kb4 ED Course: 07:38 Patient arrived in ED. rn 07:38 Rogers Raphael MD is Attending Physician. rn 07:48 Trinh Merrill, RODY is Primary Nurse. kb4 08:00 Triage completed. kb4 08:00 Arm band placed on right wrist. kb4 08:03 Patient has correct armband on for positive identification. kb4 08:03 Initial lab(s) drawn, by me, sent to lab. EKG done, by ED staff, reviewed by Rogers Raphael MD. Inserted saline lock: 20 gauge in right antecubital area, using aseptic technique. Blood collected. Flushed with 10 mL NS. 08:20 Pillow given. ll1 08:29 XRAY Chest (1 view) In Process Unspecified. EDMS 11:30 No provider procedures requiring assistance completed. kb4 11:48 Provided Education on: d/c . kb4 11:48 IV discontinued, intact, bleeding controlled, No redness/swelling at site. Pressure kb4 dressing applied. Administered Medications: 07:56 Drug: Ativan IVP 1 mg IVP once Route: IVP; Site: right antecubital; kb4 08:13 Follow up: Response: No adverse reaction kb4 09:17 Drug: Coreg PO 3.125 mg PO once; administer with food Route: PO; kb4 10:28 Follow up: Response: No adverse reaction kb4 09:17 Drug: Lisinopril PO 5 mg PO once Route: PO; kb4 10:28 Follow up: Response: No adverse reaction kb4 Medication: 08:04 VIS not applicable for this client. kb4 Outcome: 11:20 Discharge ordered by . rn 11:48 Discharged to home via wheelchair, with family, kb4 11:48 Condition: good 11:48 Discharge instructions given to patient, family, Instructed on discharge instructions, follow up and referral plans. Demonstrated understanding of instructions, follow-up care, 11:48 Patient left the ED. kb4 Signatures: Dispatcher [employer] EDMO Rogers Raphael MD MD rn Lewis, Lynsay, RN RN ll1 Trinh Merrill RN RN kb4
[2024-12-17 11:55] VITALS: TEMP 98.9
[2024-12-17 11:58] VITALS: BP 121/86; O2SAT 99
== END 2024-12-17 11:48 | disposition home or self-care (01) ==
LOC: ER 07:38
DX: R06.00 Dyspnea, unspecified (principal); R00.0 Tachycardia, unspecified
CPT/HCPCS: 36415; 71045; 80048; 83880; 84484; 85025; 93005; 96374; 99285